=== PATIENT | male | born 1980 | race Caucasian/White ===

== ENCOUNTER 2018-11-18 21:46 | Emergency (ER) | payer SELFPAY ==
[~2018-11-18] VITALS: Ht 177.8 cm; Wt 94.0 kg
[2018-11-18 21:58] VITALS: BP 156/96
[2018-11-18] MEDS ORDERED: IBUP-1985 PO (23:48)
[2018-11-18] MEDS ORDERED: AMOX500C2 PO (23:48)
[2018-11-18] MEDS ORDERED: CHLO473M3 PO (23:48)
== END 2018-11-19 00:12 | disposition home or self-care (01) ==
LOC: ER 21:47
DX: K02.9 Dental caries, unspecified (principal); K03.81 Cracked tooth; Z79.899 Other long term (current) drug therapy
CPT/HCPCS: 99283

== ENCOUNTER 2022-01-28 20:25 | Inpatient (IN) | payer BC ==
[~2022-01-28] VITALS: Ht 177.8 cm; Wt 93.2 kg
[~2022-01-28 20:25] MED LIST: CHLO473M3 PO; IBUP-1985 PO
[2022-01-28 21:35] LABS: BASOPHILS # (AUTO) 0.1 X10'3 (0-0.2); BASOPHILS % (AUTO) 0.5 % (0-1); EOSINOPHILS % (AUTO) 0.3 % (0-6); HEMATOCRIT 31.7 % (42.0-52.0); HEMOGLOBIN 10.7 g/dl (14.0-17.9); LYMPHOCYTES # (AUTO) 0.9 X10'3 (1.1-4.8); MEAN CORPUSCULAR HEMOGLOBIN 29.7 PG (27.0-31.0); MEAN CORPUSCULAR HGB CONC 33.7 g/dL (33.0-36.5); MEAN CORPUSCULAR VOLUME 88.3 FL (78-98); MEAN PLATELET VOLUME 8.5 FL (7.4-10.4); MONOCYTES % (AUTO) 6.6 % (2-12); NEUTROPHILS # (AUTO) 13.4 X10'3 (1.8-7.7); NEUTROPHILS % (AUTO) 86.6 % (42-75); PLATELET COUNT 303 X10'3 (140-440); RED BLOOD COUNT 3.59 X10'6 (4.70-6.10); RED CELL DISTRIBUTION WIDTH 19.3 % (11.5-14.5); WHITE BLOOD COUNT 15.5 X10'3 (4.5-11.0)
[2022-01-28 21:48] LABS: ANISOCYTOSIS 2+; PLATELET ESTIMATE NORMAL
[2022-01-28 21:49] LABS: ALANINE AMINOTRANSFERASE 59 U/L (12-78); ALBUMIN 2.6 G/DL (3.4-5.0); ALKALINE PHOSPHATASE 53 IU/L (46-116); ANION GAP 5 (8-16); ASPARTATE AMINO TRANSFERASE 55 U/L (10-37); BILIRUBIN,TOTAL 1.9 MG/DL (0.1-1.0); BLOOD UREA NITROGEN 31 MG/DL (7-18); BUN/CREATININE RATIO 25.6 (5.4-32.0); CHLORIDE 98 MMOL/L (99-107); CREATININE 1.21 MG/DL (0.60-1.10); GLUCOSE 298 MG/DL (70-104); LIPASE 81 U/L (73-393); POTASSIUM 4.3 MMOL/L (3.5-5.1); SODIUM 133 MMOL/L (135-145); TOTAL CARBON DIOXIDE 29.6 MMOL/L (24-32); TOTAL PROTEIN 5.3 G/DL (6.4-8.2); eGFR 66 ML/MIN
[2022-01-28 21:50] LABS: POLYCHROMASIA FEW
[2022-01-28 21:51] LABS: STOMATOCYTES 1+
[2022-01-28] MEDS ORDERED: ondansetron 4mg rapidly disintigrating tab PO ONE (22:00)
[2022-01-28] MEDS ORDERED: normal saline 1000ML IV soln IVB ONE ×2 (22:00→23:00)
[2022-01-28 22:49] LABS: ETHANOL < 0.010 GM/DL (0.0-0.010)
--- NOTE | 2022-01-28 22:58 | NUR ---
Patient next of kin, Tori Watts [phone]
[2022-01-28] MEDS ORDERED: pantoprazole 40mg IV 80 MG in normal saline 100ml IV soln 100 ML IV ONE (23:00)
[2022-01-28] MEDS ORDERED: octreotide 100mcg/1 ml ampule IV ONE (23:05)
[2022-01-28] MEDS ORDERED: octreotide inj. 500 MCG in normal saline 100ml IV soln 97.5 ML IV ONE (23:05)
[2022-01-28 23:19] LABS: APTT 22 SECONDS (22-32)
[2022-01-29] VITALS (7 sets, daily range): BP systolic 104–133; BP diastolic 54–86
[2022-01-29] MEDS: pantoprazole 40MG/NS 100ML BAG 100 ML IV SCH ×6 (00:06→23:20)
[2022-01-29] MEDS ORDERED: potassium Cl 40MEQ/1/2NS 520ml 520 ML IV PRN (01:05)
[2022-01-29] MEDS ORDERED: acetaminophen 325mg tablet PO PRN (01:05)
[2022-01-29] MEDS ORDERED: ondansetron/PF 4mg/2ml inj IV PRN (01:05)
[2022-01-29] MEDS ORDERED: magnesium 4gm in 100ml NS 100 ML IV PRN (01:05)
[2022-01-29] MEDS: normal saline 1000ml 1,000 ML IV SCH ×3 (01:33→20:06)
[2022-01-29] MEDS ORDERED: ESCI-8 PO (03:01)
[2022-01-29 04:14] LABS: BASOPHILS # (AUTO) 0.1 X10'3 (0-0.2); BASOPHILS % (AUTO) 0.5 % (0-1); EOSINOPHILS % (AUTO) 0.2 % (0-6); HEMATOCRIT 27.2 % (42.0-52.0); HEMOGLOBIN 8.9 g/dl (14.0-17.9); LYMPHOCYTES # (AUTO) 1.3 X10'3 (1.1-4.8); LYMPHOCYTES % (AUTO) 10.4 % (21-51); MEAN CORPUSCULAR HGB CONC 32.7 g/dL (33.0-36.5); MEAN CORPUSCULAR VOLUME 88.7 FL (78-98); MEAN PLATELET VOLUME 8.9 FL (7.4-10.4); NEUTROPHILS # (AUTO) 10.3 X10'3 (1.8-7.7); NEUTROPHILS % (AUTO) 80.9 % (42-75); PLATELET COUNT 279 X10'3 (140-440); RED BLOOD COUNT 3.06 X10'6 (4.70-6.10); RED CELL DISTRIBUTION WIDTH 19.9 % (11.5-14.5); WHITE BLOOD COUNT 12.7 X10'3 (4.5-11.0)
[2022-01-29 04:17] LABS: OCCULT BLOOD STOOL POSITIVE (Neg)
[2022-01-29 04:23] LABS: MAGNESIUM 1.7 MG/DL (1.5-2.4)
[2022-01-29] MEDS: K and/or MAG REPLACEMENT MC SCH ×2 (06:21→20:00)
[2022-01-29] MEDS: octreotide inj. 500 MCG in normal saline 100ml IV soln 97.5 ML IV SCH ×3 (07:30→20:06)
[2022-01-29 10:00] LABS: ALANINE AMINOTRANSFERASE 50 U/L (12-78); ALBUMIN 2.5 G/DL (3.4-5.0); ALBUMIN/GLOBULIN RATIO 1.1 (1.1-1.5); ALKALINE PHOSPHATASE 46 IU/L (46-116); ANION GAP 12 (8-16); ASPARTATE AMINO TRANSFERASE 55 U/L (10-37); BILIRUBIN,TOTAL 1.5 MG/DL (0.1-1.0); BLOOD UREA NITROGEN 30 MG/DL (7-18); BUN/CREATININE RATIO 26.8 (5.4-32.0); CALCIUM 7.7 MG/DL (8.5-10.1); CHLORIDE 101 MMOL/L (99-107); CREATININE 1.12 MG/DL (0.60-1.10); GLUCOSE 221 MG/DL (70-104); POTASSIUM 4.2 MMOL/L (3.5-5.1); SODIUM 137 MMOL/L (135-145); TOTAL CARBON DIOXIDE 24.3 MMOL/L (24-32); TOTAL PROTEIN 4.8 G/DL (6.4-8.2); eGFR 72 ML/MIN
[2022-01-29 10:59] LABS: HEMATOCRIT 25.2 % (42.0-52.0); HEMOGLOBIN 8.4 g/dl (14.0-17.9); MEAN CORPUSCULAR HGB CONC 33.4 g/dL (33.0-36.5); MEAN CORPUSCULAR VOLUME 89.8 FL (78-98); MEAN PLATELET VOLUME 8.7 FL (7.4-10.4); PLATELET COUNT 262 X10'3 (140-440); RED CELL DISTRIBUTION WIDTH 19.9 % (11.5-14.5); WHITE BLOOD COUNT 11.6 X10'3 (4.5-11.0)
[2022-01-29] MEDS ORDERED: fentaNYL/PF 50MCG/1 ML 2ML syringe ONE (13:27)
[2022-01-29] MEDS ORDERED: LIDOcaine Viscous 15ml cup ONE (13:27)
[2022-01-29] MEDS ORDERED: MIDAZolam 1 MG/ML 5ML VIAL ONE (13:27)
--- NOTE | 2022-01-29 19:03 | NUR ---
attempted report, nurse will call back
[2022-01-29] MEDS ORDERED: ESCITALOPRAM OXALATE 5 MG TABLET PO SCH (21:00)
[2022-01-30] MEDS: pantoprazole 40MG/NS 100ML BAG 100 ML IV SCH ×3 (02:09→13:50)
[2022-01-30 02:12] VITALS: BP 106/60
[2022-01-30 06:00] VITALS: BP 106/54
[2022-01-30] MEDS: normal saline 1000ml 1,000 ML IV SCH (06:18)
--- NOTE | 2022-01-30 06:28 | NUR ---
Patient in room PCU 3018. I have received report from josé miguel sylvester and had the opportunity to ask questions and assume patient care.
[2022-01-30 06:40] LABS: BASOPHILS % (AUTO) 0.5 % (0-1); EOSINOPHILS # (AUTO) 0.1 X10'3 (0-0.9); EOSINOPHILS % (AUTO) 0.8 % (0-6); HEMATOCRIT 22.8 % (42.0-52.0); HEMOGLOBIN 7.7 g/dl (14.0-17.9); LYMPHOCYTES # (AUTO) 0.7 X10'3 (1.1-4.8); LYMPHOCYTES % (AUTO) 8.7 % (21-51); MEAN CORPUSCULAR HEMOGLOBIN 30.7 PG (27.0-31.0); MEAN CORPUSCULAR HGB CONC 33.7 g/dL (33.0-36.5); MEAN CORPUSCULAR VOLUME 90.9 FL (78-98); MEAN PLATELET VOLUME 8.3 FL (7.4-10.4); MONOCYTES # (AUTO) 0.5 X10'3 (0-0.9); MONOCYTES % (AUTO) 6.7 % (2-12); NEUTROPHILS # (AUTO) 6.2 X10'3 (1.8-7.7); NEUTROPHILS % (AUTO) 83.3 % (42-75); PLATELET COUNT 243 X10'3 (140-440); RED BLOOD COUNT 2.51 X10'6 (4.70-6.10); RED CELL DISTRIBUTION WIDTH 20.2 % (11.5-14.5); WHITE BLOOD COUNT 7.5 X10'3 (4.5-11.0)
[2022-01-30 06:58] LABS: ALANINE AMINOTRANSFERASE 41 U/L (12-78); ALBUMIN 2.2 G/DL (3.4-5.0); ALBUMIN/GLOBULIN RATIO 0.9 (1.1-1.5); ALKALINE PHOSPHATASE 42 IU/L (46-116); ANION GAP 6 (8-16); ASPARTATE AMINO TRANSFERASE 41 U/L (10-37); BILIRUBIN,TOTAL 0.8 MG/DL (0.1-1.0); BLOOD UREA NITROGEN 14 MG/DL (7-18); BUN/CREATININE RATIO 14.1 (5.4-32.0); CALCIUM 7.4 MG/DL (8.5-10.1); CHLORIDE 105 MMOL/L (99-107); CREATININE 0.99 MG/DL (0.60-1.10); GLUCOSE 203 MG/DL (70-104); MAGNESIUM 1.5 MG/DL (1.5-2.4); POTASSIUM 3.8 MMOL/L (3.5-5.1); SODIUM 139 MMOL/L (135-145); TOTAL CARBON DIOXIDE 27.7 MMOL/L (24-32); TOTAL PROTEIN 4.7 G/DL (6.4-8.2); eGFR 83 ML/MIN
--- NOTE | 2022-01-30 07:20 | NUR ---
Page Sent PAGER ID: [phone] MESSAGE: [id number] binu Mcguire pt has an H/H of 7.7/22.8 this NIKO. [id number]
[2022-01-30] MEDS: K and/or MAG REPLACEMENT MC SCH (08:00)
--- NOTE | 2022-01-30 09:55 | NUR ---
Nutrition Consult: Pt hx pre-diabetes A1C 6.2% per EMR; appropriate at this time. 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 Will monitor for nutrition intervention needs this admit. Addendum: 01/30/22 at [address] Amended: Links added.
[2022-01-30 10:00] VITALS: BP 128/67
[2022-01-30 10:05] LABS: ANISOCYTOSIS 3+; PLATELET ESTIMATE NORMAL
[2022-01-30 10:08] LABS: POLYCHROMASIA FEW; STOMATOCYTES 2+
[2022-01-30 10:09] LABS: HYPOCHROMASIA 1+
--- NOTE | 2022-01-30 11:12 | NUR ---
Page Sent PAGER ID: [phone] MESSAGE: [id number] binu Mcguire pt EGD results are now in his chart. thanks
[2022-01-30] MEDS ORDERED: PANT-47 PO (12:41)
[2022-01-30] MEDS: octreotide inj. 500 MCG in normal saline 100ml IV soln 97.5 ML IV SCH (13:51)
[2022-01-30 14:00] VITALS: BP 125/71
--- NOTE | 2022-01-30 14:24 | NUR ---
Page Sent PAGER ID: [phone] MESSAGE: [id number] binu Mcguire pt tolerated lunch well, he did have a 100.1 temp during vitals at 1400. just let me know if he is still good to be discharged. thanks miya. u
--- NOTE | 2022-01-30 14:47 | NUR ---
Received consult. Met with patient in regards to alcohol use and to see if patient wanted any resources for treatment options. 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 He has a sponsor that he has been in contact with and has a good support system at home. He doesn't feel like he needs any resources at this time.
--- NOTE | 2022-01-30 15:27 | NUR ---
pt is stable for discharge, iv is dc and cannula intact, all discharge info gone over, and all belongings taken, pt was walked down and left in a private vehicle with family.
== END 2022-01-30 15:30 | disposition home or self-care (01) | DRG 381 ==
LOC: ER 20:27 → ED HOLD 01-29 01:05 → EDBEDREQ 01-29 06:10 → PCU 3S 01-29 19:30
PROVIDERS: ADMIT Internal Medicine; ATTEND Family Medicine
PROC: 0DB38ZX Excision of Lower Esophagus, Via Natural or Artificial Opening Endoscopic, Diagnostic (ICD-10-PCS; principal; 2022-01-29)
DX: K22.11 Ulcer of esophagus with bleeding (principal); D62 Acute posthemorrhagic anemia; E87.1 Hypo-osmolality and hyponatremia; N17.9 Acute kidney failure, unspecified; F10.10 Alcohol abuse, uncomplicated; R74.01 Elevation of levels of liver transaminase levels; E11.65 Type 2 diabetes mellitus with hyperglycemia; K22.89 Other specified disease of esophagus; K44.9 Diaphragmatic hernia without obstruction or gangrene; Z79.899 Other long term (current) drug therapy; Z71.41 Alcohol abuse counseling and surveillance of alcoholic
CPT/HCPCS: 36415; 43239; 80053; 80320; 82272; 82948; 83036; 83690; 83735; 84145; 85008; 85025; 85027; 85610; 85730; 86885; 86900; 86901; 87081; 96361; 96365; 96376; 99152; 99153; 99291; A4620; C9113; G0378; J2250; J2354; J3010; J3490; J7030

== ENCOUNTER 2024-03-19 12:57 | Emergency (ER) | payer BC, MEDICAID ==
[~2024-03-19] VITALS: Ht 177.8 cm; Wt 95.1 kg
[~2024-03-19 12:57] MED LIST changes: -CHLO473M3 PO; +ESCI-8 PO; -IBUP-1985 PO; +PANT-47 PO
[2024-03-19 13:16] VITALS: BP 121/73; PULSE 74; TEMP 98.1; O2SAT 97
[2024-03-19] MEDS ORDERED: BUPR1FIL3 SL (14:44)
[2024-03-19 14:53] VITALS: RESP 18
== END 2024-03-19 14:54 | disposition home or self-care (01) ==
LOC: ER 12:57
DX: F11.23 Opioid dependence with withdrawal (principal); Z79.899 Other long term (current) drug therapy
CPT/HCPCS: 99283

== ENCOUNTER 2024-07-25 06:30 | Emergency (ER) | payer MEDICAID ==
[~2024-07-25] VITALS: Ht 177.8 cm; Wt 62.4 kg
[2024-07-25 06:31] VITALS: TEMP 97.9
[2024-07-25] MEDS: LidoCAINE 2% Topical Jelly 11mL syringe (UROJET) TOP ONE ×2 (06:56→07:51)
[2024-07-25] MEDS: HYDROmorphone 1 mg/ml syringe IV ONE (07:27)
[2024-07-25] MEDS ORDERED: TAMS-55 PO (08:10)
[2024-07-25 08:12] LABS: BILIRUBIN,URINE NEGATIVE (Neg); CLARITY,URINE CLEAR (Clear); GLUCOSE, URINE NEGATIVE (Neg); KETONES,URINE NEGATIVE (Neg); LEUKOCYTE ESTERASE ,URINE NEGATIVE (Neg); NITRITES, URINE NEGATIVE (Neg); OCCULT BLOOD,URINE NEGATIVE (Neg); PROTEIN,URINE TRACE mg/dl (Neg); UROBILINOGEN,URINE 0.2 E.U/dL (0.2-1.0)
[2024-07-25 08:13] LABS: UA COLLECTION TYPE FOLEY CATH
[2024-07-25 08:14] LABS: COLOR,URINE DARK YELLOW (Yellow)
[2024-07-25 08:17] LABS: BACTERIA,URINE FEW /HPF (Neg); MUCUS STRANDS NONE SEEN /LPF (Neg); RBC,URINE 0-2 /HPF (0-2); SQUAMOUS EPITHELIAL CELL,UR NONE SEEN /LPF (FEW); WBC,URINE 0-4 /HPF (0-4)
[2024-07-25 09:28] VITALS: BP 150/89; PULSE 79; RESP 16; O2SAT 98
== END 2024-07-25 10:02 | disposition home or self-care (01) ==
LOC: ER 06:30
DX: R10.30 Lower abdominal pain, unspecified (principal); R33.8 Other retention of urine; F41.9 Anxiety disorder, unspecified; F32.A Depression, unspecified; Z79.899 Other long term (current) drug therapy
CPT/HCPCS: 51702; 81001; 96374; 99284; A4314; J1171; A4340; A4358